=== PATIENT | female | born 1965 | race Caucasian/White ===

== ENCOUNTER 2020-05-29 06:32 | Inpatient (IN) ==
--- OUTSIDE RECORDS SUMMARY | 2020-05-29 06:34 | External Medical Summary | Continuity of Care Document ---
:1965 Author Name Kayleen Riojas Address Unavailable Unavailable , Care Team Providers Name Role Phone Ben Riojas Unavailable [email or web address], [email or web address] Unavailable Unavailable Unavailable Unavailable Unavailable Problems Abnormal finding on mammography (793.80) (R92.8) Encounter for routine gynecological examination (V72.31) (Z0 1.419) Hypertension (401.9) (I10) Allergies and Adverse Reactions Codeine Derivatives (Allergy) Contrast Media Ready-Box MISC (Allergy) Demerol SOLN (Allergy) Morphine Derivatives (Allergy) Medications Levoxyl 88 MCG Oral Tablet Refills: 0 Cardizem TABS Refills: 0 LaMICtal TABS Refills: 0 Zocor TABS Refills: 0 Remeron TABS Refills: 0 Flecainide Acetate TABS Refills: 0 CeleXA TABS Refills: 0 Procedures History of Oral Surgery Tooth Extraction Status: Completed History of Hernia Repair Status: Complet ed History of Tonsillectomy With Adenoidectomy Status: Completed History of Vaginal Hysterectomy Status: Completed History of Complete Colonoscopy Status: Completed History of Cervix Cryosurgery Status: Co mpleted History of Laparoscop Fulguration Uterine Surface Endometrio tic Status: Completed Tissue History of Lysis Of Vulvar Labial Adhesions Status: Completed Immunizations Immunizations not documented Family History Grandmother Family history of Breast Cancer (V16.3) Status: Active aunt Family history of Breast Cancer (V16.3) Status: Active Father Family history of Colon Cancer (V16.0) Status: Active Social History - Smoking Status Tobacco smoking consumption unknown Plan of Treatment Planned Observations Planned Goals not documented Results No Known Results Results not documented
[2020-05-29] MEDS ORDERED: SODIUM CHLORIDE 0.9% 1000ML 1,000 ML IV ONE (07:09)
[2020-05-29] MEDS ORDERED: ceFAZolin 2000MG 2,000 MG/15 ML SYR IV STA (07:15)
[2020-05-29] MEDS ORDERED: methylPREDNISolone 125 MG/2 ML VIAL IV STA (07:20)
[2020-05-29] MEDS ORDERED: diphenhydrAMINE 50 MG/ML VIAL IV STA (07:20)
--- NOTE | 2020-05-29 07:20 | Emergency Department Note ---
History of Present Illness General Chief complaint: Infection, Wound Stated complaint: SORE ON NECK Time Seen by Provider: 05/29/20 07:00 History of Present Illness 55-year-old female who presents to the emergency department with complaint of a left neck infection. The patient reports that she started to notice some thickening and swelling 3 days ago. It did form a little bit of a head, and she did try to pop it. The patient reports that she woke up early this morning and felt drainage. She did not notice if it was bloody or purulent. The patient reports that she has also developed fevers and chills over the past 12 hours. The patient denies any known preceding injury to the skin. She denies any i nsect bites. The patient denies prior history of skin infections. The patient did take ibuprofen 600 mg at 4:30 AM (approximately 2.5 hours prior to arrival), and rates her discomfort a 3 out of 10 on my exam. Tetanus immunization is up-to-date. Home Medications Medication Instructions Recorded Confirmed Type atorvastatin 20 mg PO QAM 03/21/20 05/29/20 History bupropion HCl 150 mg PO QAM 03/21/20 05/29/20 History diltiazem HCl 240 mg PO QAM 03/21/20 05/29/20 History hydroxyzine HCl 10 - 20 mg PO TID PRN 03/21/20 05/29/20 History lamotrigine 300 mg PO QAM 03/21/20 05/29/20 History levothyroxine 112 mcg PO QAM 03/21/20 05/29/20 History mirtazapine 15 mg PO HS 03/21/20 05/29/20 History venlafaxine 300 mg PO QAM 03/21/20 05/29/20 History ibuprofen 200 mg PO Q6H PRN 05/29/20 05/29/20 History Allergies Allergy/AdvReac Type Severity Reaction Status Date / Time codeine AdvReac Unknown Nausea/Vomi Verified 05/29/20 07:13 ting Iodinated Contrast Media AdvReac Unknown Tachycardia Verified 05/29/20 07:13 morphine AdvReac Unknown Nausea/Vomi Verified 05/29/20 07:13 ting Past Med/Surg History Medical History Depression Hyperlipidemia Hypertension Hypothyroidism (acquired) Prediabetes Surgical History History of breast biopsy History of hysterectomy History of inguinal hernia repair History of tonsillectomy and adenoidectomy Family History Father Colorectal cancer Stroke Pulmonary embolism Mother Melanoma Social History Smoking Status: Never smoker Second Hand Exposure: No; Do You Dip or Chew Tobacco: No; Hx Alcohol Use: No Hx Substance Use: No Preferred Language: Slovenian Dialysis Technician Required: No Beliefs That Will Affect Care: None Current Living Situation: Spouse and Family Other Information That Helps Us Care for You: No Feels Safe at Home: Yes Safety Concerns: Feels Safe At This Time Assistive Devices: Glasses Review of Systems 10 system review was performed and was negative except for pertinent positives and negatives as indicated in history of present illness Physical Exam Vital Signs Vital Signs - 24 hr 05/29/20 06:36 05/29/20 08:00 05/29/20 09:00 Temperature 37.8 C H Temperature Source Oral Pulse Rate 115 H Pulse Rate [Right Finger] 77 78 Respiratory Rate 18 18 18 Respiratory Effort / Characteristics Non-Labored Spontaneous Non-Labored Spontaneous Non-Labored Spontaneous Respiratory Depth Normal Normal Normal Respiratory Pattern Regular Regular Regular Blood Pressure 149/84 H Blood Pressure [Left Arm] 133/84 141/87 H Blood Pressure Mean 105 Blood Pressure Mean [Left Arm] 100 105 Blood Pressure Position Sitting Blood Pressure Position [Left Arm] Lying Lying Pulse Oximetry 95 95 95 Oxygen Delivery Method Room Air Room Air Room Air Sepsis Recent Fever Within 48 Hours Yes Sepsis New/Unexplained Change in Mental Status No Sepsis Action Taken by Nursing No Action Required 05/29/20 10:00 05/29/20 10:30 Temperature 37.3 C Temperature Source Oral Pulse Rate Pulse Rate [Right Finger] 92 H 84 Respiratory Rate 18 18 Respiratory Effort / Characteristics Non-Labored Spontaneous Non-Labored Spontaneous Respiratory Depth Normal Normal Respiratory Pattern Regular Regular Blood Pressure Blood Pressure [Left Arm] 133/84 132/83 Blood Pressure Mean Blood Pressure Mean [Left Arm] 100 99 Blood Pressure Position Blood Pressure Position [Left Arm] Lying Lying Pulse Oximetry 94 94 Oxygen Delivery Method Room Air Room Air Sepsis Recent Fever Within 48 Hours Sepsis New/Unexplained Change in Mental Status Sepsis Action Taken by Nursing CONSTITUTIONAL: Healthy and well nourished. Patient does not appear acutely ill or toxic. HEENT: Normocephalic, atraumatic. Pupils equal, round and reactive. Ears and nares are clear. No scleral icterus or conjunctival injection. Examination of the oropharynx does not show any obvious gingival erythema, fluctuance or pointing. No tenderness to palpation or percussion of any left mandibular dentition. NECK: Examination shows notable induration of the left submandibular and anterior lateral neck region. No fluctuance appreciated. No obvious tracheal deviation. No JVD or carotid bruits. LYMPHATICS: No cervical chain adenopathy. RESPIRATORY: Clear to auscultation bilaterally with no wheezing, crackles, rhonchi or stridor. CARDIOVASCULAR: Regular rate and rhythm with no murmurs, rubs or gallops. GASTROINTESTINAL: Bowel sounds present in all quadrants. Soft and nontender to palpation. MUSCULOSKELETAL: Full range of motion of all major joints without discomfort. INTEGUMENTARY: No rash or other significant dermatologic conditions noted. HEMATOLOGIC: No ecchymosis or petechiae. PSYCHIATRIC: Positive affect. NEUROLOGIC: Facial sensations are intact. Course Course Patient history and physical exam were performed. Nurses notes were reviewed. Vital signs were reviewed, showing an oral temperature of 37.8 C. Patient is also tachycardic at 115 bpm. She is also hypertensive at 149/84. Patient does not appear in any acute distress, and refuses any analgesics. IV access was established, and labs were drawn, including blood cultures x2. After cultures were drawn, the patient was administered IV Ancef. Review of labs does show a white count of 14.88 with left shift and bandemia. Lactate was elevated at 2.2. Remaining electrolytes were normal. I did recommend CT imaging of the neck to rule out abscess. The patient is noted to have an allergy to IV contrast. She has had IV contrast in the past when premedicated. The patient was administered IV Solu-Medrol and Benadryl. CT of the neck with IV contrast was performed without any adverse side effects, and showed a 9 mm fluid collection consistent with abscess. Findings were discussed with Dr. Santana, ED attending physician, who agrees with hospitalist evaluation. Findings were also discussed with the patient, expressing concern for possible quick development and worsening infection. She was in agreement with hospice evaluation as well. [facility] Please see their dictation for further treatment and final disposition. Administered Medications Potassium Chloride/Sodium Chloride (Normal Saline W/20 Meq Kcl) 20 meq in 1,000 mls @ 125 mls/hr IV .Q8H GUILLAUME Stop: 05/30/20 03:54 Last Admin: 05/29/20 13:06 Dose: 125 mls/hr Documented by: [id number] Discontinued Medications Diphenhydramine HCl (Diphenhydramine 50 Mg/Ml Vial) 25 mg IV NOW STA Stop: 05/29/20 07:21 Last Admin: 05/29/20 07:57 Dose: 25 mg Documented by: [id number] Sodium Chloride (Nss 1000ml) 1,000 mls @ 999 mls/hr IV .Q1H1M ONE Stop: 05/29/20 08:09 Last Infusion: 05/29/20 08:58 Dose: 0 mls/hr Documented by: [id number] Admin: 05/29/20 07:57 Dose: 999 mls/hr Documented by: [id number] Cefazolin Sodium (Ancef 2000mg) 2,000 mg in 15 mls @ 3.75 mls/min IV NOW STA Stop: 05/29/20 07:18 Last Admin: 05/29/20 08:02 Dose: 3.75 mls/min Documented by: [id number] Ioversol (Ioversol 100ml) 94 ml IV ONCE ONE Stop: 05/29/20 09:14 Last Admin: 05/29/20 09:14 Dose: 94 ml Documented by: [id number] Methylprednisolone (Methylprednisolone 125 Mg/2 Ml Vial) 125 mg IV NOW STA Stop: 05/29/20 07:21 Last Admin: 05/29/20 07:57 Dose: 125 mg Documented by: [id number] Medical Decision Making Medical Records Attestation: I reviewed the patient's medical records. Home Medications Current Medication List: was personally reviewed by me Laboratory Data Attestation: I reviewed the patient's lab results. Result diagrams: 05/29/20 07:35 05/29/20 07:35 Lab Results 05/29/20 05/29/20 05/29/20 Range/Units 07:35 07:35 07:35 WBC 14.88 H (4.8-10.8) K/uL RBC 4.75 (4.2-5.4) M/uL Hgb 14.5 (12.0-16.0) g/dL Hct 43.1 (37-47) % MCV 90.7 (80-100) fL MCH 30.5 (25-34) pg MCHC 33.6 (32-36) g/dL RDW Std Deviation 43.8 (36.4-46.3) fL RDW Coeff of Veronica 13.3 (11.5-14.5) % Plt Count 329 (130-400) K/uL MPV 11.8 H (7.4-10.4) fL Immature Gran % (Auto) 0.4 % Neut % (Auto) 81.6 % Lymph % (Auto) 11.1 % Crenshaw % (Auto) 5.8 % Eos % (Auto) 0.8 % Baso % (Auto) 0.3 % Neut # (Auto) 12.15 H (1.4-6.5) K/uL Lymph # (Auto) 1.65 (1.2-3.4) K/uL Crenshaw # (Auto) 0.86 H (0.11-0.59) K/uL Eos # (Auto) 0.12 (0-0.5) K/uL Baso # (Auto) 0.04 (0-0.2) K/uL Immature Gran # (Auto) 0.06 H (0.00-0.02) K/uL Sodium 140 (136-145) mmol/L Potassium 3.5 (3.5-5.1) mmol/L Chloride 107 (98-107) mmol/L Carbon Dioxide 25 (21-32) mmol/L Anion Gap 8.0 (3-11) BUN 23 H (7-18) mg/dl Creatinine 1.23 H (0.6-1.2) mg/dl Est Cr Clr Drug Dosing 60.1 ml/min Est GFR ( Amer) 56.8 Est GFR (Non-Af Amer) 49.0 BUN/Creatinine Ratio 18.6 (10-20) Glucose 182 H (70-99) mg/dl Lactate 2.2 H* (0.4-2.0) mmol/L Calcium 9.8 (8.5-10.1) mg/dl Total Bilirubin 0.3 (0.2-1) mg/dl AST 35 (15-37) U/L ALT 75 (12-78) U/L Alkaline Phosphatase 157 H (45-117) U/L Total Protein 8.1 (6.4-8.2) gm/dl Albumin 4.8 (3.4-5.0) gm/dl Globulin 3.3 (2.5-4.0) gm/dl Albumin/Globulin Ratio 1.5 (0.9-2) Procalcitonin (0-0.5) ng/ml 05/29/20 05/29/20 Range/Units 07:35 09:51 WBC (4.8-10.8) K/uL RBC (4.2-5.4) M/uL Hgb (12.0-16.0) g/dL Hct (37-47) % MCV (80-100) fL MCH (25-34) pg MCHC (32-36) g/dL RDW Std Deviation (36.4-46.3) fL RDW Coeff of Veronica (11.5-14.5) % Plt Count (130-400) K/uL MPV (7.4-10.4) fL Immature Gran % (Auto) % Neut % (Auto) % Lymph % (Auto) % Crenshaw % (Auto) % Eos % (Auto) % Baso % (Auto) % Neut # (Auto) (1.4-6.5) K/uL Lymph # (Auto) (1.2-3.4) K/uL Crenshaw # (Auto) (0.11-0.59) K/uL Eos # (Auto) (0-0.5) K/uL Baso # (Auto) (0-0.2) K/uL Immature Gran # (Auto) (0.00-0.02) K/uL Sodium (136-145) mmol/L Potassium (3.5-5.1) mmol/L Chloride (98-107) mmol/L Carbon Dioxide (21-32) mmol/L Anion Gap (3-11) BUN (7-18) mg/dl Creatinine (0.6-1.2) mg/dl Est Cr Clr Drug Dosing ml/min Est GFR ( Amer) Est GFR (Non-Af Amer) BUN/Creatinine Ratio (10-20) Glucose (70-99) mg/dl Lactate 1.3 (0.4-2.0) mmol/L Calcium (8.5-10.1) mg/dl Total Bilirubin (0.2-1) mg/dl AST (15-37) U/L ALT (12-78) U/L Alkaline Phosphatase (45-117) U/L Total Protein (6.4-8.2) gm/dl Albumin (3.4-5.0) gm/dl Globulin (2.5-4.0) gm/dl Albumin/Globulin Ratio (0.9-2) Procalcitonin 0.08 (0-0.5) ng/ml Imaging Data Attestation: I personally reviewed and interpreted this imaging study as follows: My Impression: CT of the neck with IV contrast shows a small fluid collection consistent with abscess. No other acute paratracheal or other concerning findings. Radiologist report was also reviewed. Radiologist's Impression: CT OF THE NECK WITH IV CONTRAST CLINICAL HISTORY: Left neck abscess versus cellulitis. COMPARISON STUDY: No previous studies for comparison. TECHNIQUE: Following IV administration of 94 mL of Optiray-320, helical axial images of the neck were obtained. Sagittal and coronal reconstructions were viewed. Automated exposure control was utilized for the study. A dose lowering technique was utilized adhering to the principles of ALARA. CT DOSE: 442.83 mGycm FINDINGS: Visualized portions of the intracranial contents are unremarkable. Orbits are unremarkable. The sinuses are clear. A few opacified right mastoid air cells are noted. Major vasculature of the neck is patent. Parotid and submandibular glands are normal. No periapical abscess is identified. A marker was placed on the skin at site of abnormality. There is a corresponding 9 mm subcutaneous rim-enhancing fluid collection on image 129 of 238 consistent with a small abscess. There is moderate associated inflammation with thickening of the platysma. There is no soft tissue gas. Airway is patent. Lung apices are clear. There is no cervical spine fracture. No cervical lymphadenopathy is present. Epiglottis is normal. No mucosal lesion is identified although these may be occult by CT. IMPRESSION: 9 mm subcutaneous rim-enhancing left neck fluid collection consistent with an abscess at site of maximal swelling. Moderate associated infl ammation with skin thickening consistent with cellulitis. No soft tissue gas. Blood Pressure Blood Pressure Findings: Elevated blood pressure MDM Narrative Patient has notable swelling of the left neck region with a fever and elevated lactate that I feel warrants hospitalist evaluation for IV antibiotics and close monitoring for worsening condition. At this point, I feel that the abscess is too small for I&D procedure. CT does not show any involvement of the deeper neck tissue or paratracheal region. Impression & Plan Abscess, neck, Fever Discharge Plan Visit Data Chief Complaint: Infection, Wound Stated Complaint: SORE ON NECK ED Provider: David Santana ED Midlevel Provider: Yinka Crowley Discharge Problem: Abscess, neck, Fever Patient Disposition: Admitted As Inpatient Discharge Instructions Interventions: ED Discharge Assessment Last Done: 05/29/20 14:13
[2020-05-29 08:21] LABS: Basophils # (auto) 0.04 K/uL (0-0.2); Basophils % (auto) 0.3 %; Eosinophils # (auto) 0.12 K/uL (0-0.5); Eosinophils % (auto) 0.8 %; Hematocrit (blood only) 43.1 % (37-47); Hemoglobin 14.5 g/dL (12.0-16.0); Immature Granulocytes # (auto) 0.06 K/uL (0.00-0.02); Immature Granulocytes % (auto) 0.4 %; Lymphocytes # (auto) 1.65 K/uL (1.2-3.4); Lymphocytes % (auto) 11.1 %; Mean Corpuscular Hemoglobin 30.5 pg (25-34); Mean Corpuscular Hgb Conc 33.6 g/dL (32-36); Mean Corpuscular Volume 90.7 fL (80-100); Mean Platelet Volume 11.8 fL (7.4-10.4); Monocytes # (auto) 0.86 K/uL (0.11-0.59); Monocytes % (auto) 5.8 %; Neutrophils # (auto) 12.15 K/uL (1.4-6.5); Neutrophils % (auto) 81.6 %; Platelet Count 329 K/uL (130-400); RDW Coefficient of Variation 13.3 % (11.5-14.5); RDW Standard Deviation 43.8 fL (36.4-46.3); Red Blood Count 4.75 M/uL (4.2-5.4); White Blood Count 14.88 K/uL (4.8-10.8)
[2020-05-29 08:41] LABS: Albumin Level 4.8 gm/dl (3.4-5.0); BUN Creatinine Ratio 18.6 (10-20); Calcium 9.8 mg/dl (8.5-10.1); Creatinine Clr Calc Pharmacy 60.1 ml/min; Est GFR (African American) 56.8; Potassium 3.5 mmol/L (3.5-5.1)
[2020-05-29 08:44] LABS: Albumin Globulin Ratio 1.5 (0.9-2); Bilirubin,Total 0.3 mg/dl (0.2-1); Globulin 3.3 gm/dl (2.5-4.0); Total Protein 8.1 gm/dl (6.4-8.2)
[2020-05-29] MEDS ORDERED: IOVERSOL 100ml IV ONE (09:13)
--- NOTE | 2020-05-29 09:23 | CT Scan Report ---
CT OF THE NECK WITH IV CONTRAST CLINICAL HISTORY: Left neck abscess versus cellulitis. COMPARISON STUDY: No previous studies for comparison. TECHNIQUE: Following IV administration of 94 mL of Optiray-320, helical axial images of the neck wer e obtained. Sagittal and coronal reconstructions were viewed. Automated exposure control was utiliz ed for the study. A dose lowering technique was utilized adhering to the principles of ALARA. CT DOSE: 442.83 mGycm FINDINGS: Visualized portions of the intracranial contents are unremarkable. Orbits are unremarkable . The sinuses are clear. A few opacified right mastoid air cells are noted. Major vasculature of the neck is patent. Parotid and submandibular glands are normal. No periapical abscess is identified. A m arker was placed on the skin at site of abnormality. There is a corresponding 9 mm subcutaneous rim-e nhancing fluid collection on image 129 of 238 consistent with a small abscess. There is moderate asso ciated inflammation with thickening of the platysma. There is no soft tissue gas. Airway is patent. L kingsley apices are clear. There is no cervical spine fracture. No cervical lymphadenopathy is present. Ep iglottis is normal. No mucosal lesion is identified although these may be occult by CT. IMPRESSION: 9 mm subcutaneous rim-enhancing left neck fluid collection consistent with an abscess at site of maximal swelling. Moderate associated inflammation with skin thickening consistent with cell ulitis. No soft tissue gas. ACT 112: Negative or not required by law. Electronically signed by: Samuel Schumacher M.D. 05/29/2020 9:21 AM
--- NOTE | 2020-05-29 11:26 | History & Physical Report ---
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 (6) Depression: - Continue outpatient meds DVT prophylaxis with Lovenox Pt requests to be full code Pt seen and reviewed with collaborating physician, Dr. An. Plan of care discussed and as outlined above. Fanny Grant PA-C History of Present Illness Chief Complaint: Neck swelling and tenderness Primary Care Provider: Davis Hernandez DO This is a 55 y/o female with a PMH of hypothyroidism, dyslipidemia, prediabetes, and depression who presented to the ED this morning with worsening symptoms of a neck infection. Pt reports that she noticed swelling, redness, and tenderness in her left neck three days ago. She was using warm compresses which seemed to help somewhat. Not really painful but area was tender to touch. Yesterday afternoon, symptoms acutely worsening with increased swelling and tenderness with the onset of spontaneous purulent drainage. She kept wiping the area and cleaning with soap and water but didn't feel like she needed to keep it covered. Drainage seemed to stop overnight. None at present. She didn't sleep well last night due to her symptoms although she denies that significant pain kept her awake. She has felt hot at times but denies chills. No documented fever at home but was noted to have a fever in the ED. Fatigue related to not sleeping last night but otherwise no malaise. She denies dysphagia, odynophagia, sensation of throat closing, chest tightness, wheezing, shortness of breath or chest pain. She denies dental pain, swelling or bleeding. No similar symptoms prior. 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 No known contact with [facility] but her spouse works at [employer], which is currently having an outbreak. Spouse is asymptomatic. Allergies Allergy/AdvReac Type Severity Reaction Status Date / Time codeine AdvReac Unknown Nausea/Vomi Verified 05/29/20 07:13 ting Iodinated Contrast Media AdvReac Unknown Tachycardia Verified 05/29/20 07:13 morphine AdvReac Unknown Nausea/Vomi Verified 05/29/20 07:13 ting Home Medications Medication Instructions Recorded Confirmed Type atorvastatin 20 mg PO QAM 03/21/20 05/29/20 History bupropion HCl 150 mg PO QAM 03/21/20 05/29/20 History diltiazem HCl 240 mg PO QAM 03/21/20 05/29/20 History hydroxyzine HCl 10 - 20 mg PO TID PRN 03/21/20 05/29/20 History lamotrigine 300 mg PO QAM 03/21/20 05/29/20 History levothyroxine 112 mcg PO QAM 03/21/20 05/29/20 History mirtazapine 15 mg PO HS 03/21/20 05/29/20 History venlafaxine 300 mg PO QAM 03/21/20 05/29/20 History ibuprofen 200 mg PO Q6H PRN 05/29/20 05/29/20 History Past Med/Surg History Medical History Depression Hyperlipidemia Hypertension Hypothyroidism (acquired) Prediabetes Surgical History History of breast biopsy History of hysterectomy History of inguinal hernia repair History of tonsillectomy and adenoidectomy Family History (Updated 05/29/20 @ 11:24 by Kamla Grant PA-C) Father Colorectal cancer Stroke Pulmonary embolism Mother Melanoma Social History Smoking Status: Never smoker Preferred Language: Ukrainian Feels Safe at Home: Yes Review of Systems Review of Systems: All systems reviewed & are unremarkable except as noted in HPI & below Constitutional: + fever, + sweats and + fatigue; no chills, no weakness and no anorexia Eyes: no diplopia and no worsening vision Ear, Nose, Mouth, Throat: no dental pain, no dental abscess, no bleeding gums, no sore throat and no dysphagia Respiratory: no cough, no chest congestion, no dyspnea and no wheezing Cardiovascular: no chest pain, no palpitations, no lightheadedness, no syncope and no edema Gastrointestinal: no abdominal pain, no nausea, no vomiting and no diarrhea/loose stools Genitourinary: no dysuria, no urinary frequency and no hematuria Musculoskeletal: + neck pain; no myalgia and no muscle weakness Integumentary: as per Subjective / HPI Neurologic: no seizure-like activity, no dizziness and no headache(s) Psychiatric: + depression and + anxiety Physical Exam Constitutional: WD/WN, vitals as above no acute distress Eyes: + anicteric sclerae ENMT: multiple fillings noted, no significant gingival swelling, purulent drainage, bleeding or tenderness noted. Neck: moderately swollen submandibular LN Tender indurated area left neck with overlying area of erythema, small amount of crusted drainage but not actively draining at present. Tenderness extends from just right of midline under jaw to left jawline to lateral left neck but does not extend to left ear or left supraclavicular area Respiratory: no respiratory distress and no labored breathing Auscultation: lungs clear to auscultation bilaterally; no rales, no rhonchi and no wheezes Cardiovascular: Rate/Rhythm: regular rate and regular rhythm Heart Sounds: no gallop, no murmur and no cardiac rub Vessels: dorsalis pedis pulses present Extremities: no pedal edema Gastrointestinal (Abdomen): Inspection/Auscultation: normal bowel sounds; abdomen not distended Percussion/Palpation: abdomen soft; abdomen nontender Musculoskeletal: Head/Neck/Chest: normocephalic, head atraumatic and neck supple Extremities: no cyanosis and no clubbing Skin: + induration and + erythema See neck exam Neurologic: moves all extremities; no focal motor deficits Psychiatric: A+Ox3, euthymic affect Results & Data Results & Data ([facility]) Vital Signs (Past 12 Hours) Vital Signs Temp Pulse Pulse Resp BP BP Pulse Ox 05/29/20 10:30 84 18 132/83 94 05/29/20 10:00 37.3 C 92 H 18 133/84 94 05/29/20 09:00 78 18 141/87 H 95 05/29/20 08:00 77 18 133/84 95 05/29/20 06:36 37.8 C H 115 H 18 149/84 H 95 Laboratory Results Laboratory Results - last 24 hr 05/29/20 05/29/20 05/29/20 07:35 07:35 07:35 WBC 14.88 H RBC 4.75 Hgb 14.5 Hct 43.1 MCV 90.7 MCH 30.5 MCHC 33.6 RDW Std Deviation 43.8 RDW Coeff of Veronica 13.3 Plt Count 329 MPV 11.8 H Immature Gran % (Auto) 0.4 Neut % (Auto) 81.6 Lymph % (Auto) 11.1 [place] % (Auto) 5.8 Eos % (Auto) 0.8 Baso % (Auto) 0.3 Neut # (Auto) 12.15 H Lymph # (Auto) 1.65 [place] # (Auto) 0.86 H Eos # (Auto) 0.12 Baso # (Auto) 0.04 Immature Gran # (Auto) 0.06 H Sodium 140 Potassium 3.5 Chloride 107 Carbon Dioxide 25 Anion Gap 8.0 BUN 23 H Creatinine 1.23 H Est Cr Clr Drug Dosing 60.1 Est GFR ( Amer) 56.8 Est GFR (Non-Af Amer) 49.0 BUN/Creatinine Ratio 18.6 Glucose 182 H Lactate 2.2 H* Calcium 9.8 Total Bilirubin 0.3 AST 35 ALT 75 Alkaline Phosphatase 157 H Total Protein 8.1 Albumin 4.8 Globulin 3.3 Albumin/Globulin Ratio 1.5 Procalcitonin SARS-CoV-2 Ag (Rapid) 05/29/20 05/29/20 05/29/20 07:35 09:51 Unknown WBC RBC Hgb Hct MCV MCH MCHC RDW Std Deviation RDW Coeff of Veronica Plt Count MPV Immature Gran % (Auto) Neut % (Auto) Lymph % (Auto) [place] % (Auto) Eos % (Auto) Baso % (Auto) Neut # (Auto) Lymph # (Auto) [place] # (Auto) Eos # (Auto) Baso # (Auto) Immature Gran # (Auto) Sodium Potassium Chloride Carbon Dioxide Anion Gap BUN Creatinine Est Cr Clr Drug Dosing Est GFR ( Amer) Est GFR (Non-Af Amer) BUN/Creatinine Ratio Glucose Lactate 1.3 Calcium Total Bilirubin AST ALT Alkaline Phosphatase Total Protein Albumin Globulin Albumin/Globulin Ratio Procalcitonin 0.08 SARS-CoV-2 Ag (Rapid) Negative Medications Administered Discontinued Medications Diphenhydramine HCl (Diphenhydramine 50 Mg/Ml Vial) 25 mg IV NOW STA Stop: 05/29/20 07:21 Last Admin: 05/29/20 07:57 Dose: 25 mg Documented by: [id number] Sodium Chloride (Nss 1000ml) 1,000 mls @ 999 mls/hr IV .Q1H1M ONE Stop: 05/29/20 08:09 Last Infusion: 05/29/20 08:58 Dose: 0 mls/hr Documented by: [id number] Admin: 05/29/20 07:57 Dose: 999 mls/hr Documented by: [id number] Cefazolin Sodium (Ancef 2000mg) 2,000 mg in 15 mls @ 3.75 mls/min IV NOW STA Stop: 05/29/20 07:18 Last Admin: 05/29/20 08:02 Dose: 3.75 mls/min Documented by: [id number] Ioversol (Ioversol 100ml) 94 ml IV ONCE ONE Stop: 05/29/20 09:14 Last Admin: 05/29/20 09:14 Dose: 94 ml Documented by: [id number] Methylprednisolone (Methylprednisolone 125 Mg/2 Ml Vial) 125 mg IV NOW STA Stop: 05/29/20 07:21 Last Admin: 05/29/20 07:57 Dose: 125 mg Documented by: [id number] Code Status & VTE Plan VTE Prophylaxis Plan VTE Prophylaxis will be ordered: Yes Supervising Physician Co-Signing Physician Notes Patient is a 55-year-old female with history of prediabetes, hypothyroidism and other medical problems presents with history of worsening neck swelling, erythema, tenderness predominantly on left side of the neck with started as a small lump since 3 days duration. She also admits to noticing purulent drainage from the swelling. Denies any history of dysphagia, odynophagia, dyspnea, insect bite, trauma to the area. Please review HPI for complete details of presentation. On exam patient is moderately built and nourished, no apparent distress, normocephalic atraumatic, EOMI, Neck--+ neck swelling predominantly left side/Sub mandibular region, small crusted blister like erythematous lesion, + submental, submandibular lymphadenopathy, tenderness, lungs are clear to auscultation, normal breath sounds, S1-S2, no murmur, + tachycardia, trace pedal edema, abdomen soft, nontender, normal bowel sounds, alert awake oriented, grossly no focal motor deficits. Patient is admitted for management of Possible sepsis secondary to neck abscess/Facial Cellulitis. Lactate levels normalized with IV fluids. Neck CT suggestive of 9 mm subcutaneous rim-enhancing left neck fluid collection con sistent with an abscess at site of maximal swelling. Also noted moderate inflammation with skin thickening consistent with cellulitis. Blood cultures were obtained. Check MRSA screen. Agree with local wound care and surgery consult for possible I&D. Will start on broad-spectrum antibiotics Unasyn, doxycycline. Continue IV fluids. Will update HbA1c given history of prediabetes. Sinus tachycardia. Will restart diltiazem. I personally reviewed the record. Patient is interviewed and examined at bedside. Patient's care is coordinated with Kamla Grant PA-C. Please refer to the documentation above for details of patient's presentation and for discussion of other issues. (1) Depression Active/Remission status: remission status unspecified Depression Type: major depressive disorder Major depression recurrence: recurrent Qualified Code(s): F33.9 - Major depressive disorder, recurrent, unspecified
[2020-05-29] MEDS: NSS + 20MEQ KCL 20 MEQ/1,000 ML BAG IV SCH ×2 (13:06→22:42)
[2020-05-29] MEDS ORDERED: ACETAMINOPHEN 325 MG TAB PO PRN (14:27)
[2020-05-29] MEDS ORDERED: CARBOHYDRATES FOR HYPOGLYCEMIA PO PRN (14:27)
[2020-05-29] MEDS ORDERED: AMPICILLIN/SULBACTAM SOD 1,500 MG in 0.9 % SODIUM CHLORIDE 100 ML IV SCH (14:27)
[2020-05-29] MEDS ORDERED: GLUCOSE 40% GEL 15 GM TUBE PO PRN (14:27)
[2020-05-29] MEDS ORDERED: GLUCOSE 10 TABS/TUBE PO PRN (14:27)
[2020-05-29] MEDS ORDERED: GLUCAGON FOR INJ 1 MG VIAL SQ PRN (14:27)
[2020-05-29] MEDS ORDERED: DEXTROSE 50% 50 ML SYRINGE IV PRN (14:27)
[2020-05-29] MEDS ORDERED: CONSULT PHARMACY PRN (14:52)
[2020-05-29] MEDS: ENOXAPARIN INJ 40 MG/0.4 ML SYR SQ SCH (15:45)
[2020-05-29] MEDS: dilTIAZem HCL 240 MG CAPCR PO SCH (15:45)
[2020-05-29] MEDS: VENLAFAXINE HCL XR 150 MG CAPXR PO SCH (15:45)
[2020-05-29] MEDS: buPROPion SR 150 MG TABCR PO SCH (15:46)
[2020-05-29] MEDS: lamoTRIgine 100 MG TAB PO SCH (15:46)
[2020-05-29] MEDS: AMPICILLIN/SULBACTAM SOD 3,000 MG in 0.9 % SODIUM CHLORIDE 100 ML IV SCH ×2 (15:50→21:33)
--- NOTE | 2020-05-29 16:52 | Surgery Consultation ---
Date of Consultation May 29, 2020 Assessment & Plan (1) Abscess, neck: This patient had what sounds like an abscess. The CAT scan confirms that although it is only 9 mm in size. Agree with IV antibiotics. Would continue with warm compresses. Would recommend ENT evaluation. Would hold enoxaparin. If this does not improve with IV antibiotics and conservative management may need surgical intervention but again would like to defer to ENT for their opinion. History of Present Illness Reason for Consultation: Abscess left neck Requesting Physician: Kamla Grant PA-C Attending Physician: Tj An MD History of Present Illness I been asked by Kamla Grant PA-C to see this 55-year-old female who presented to the emergency room with pain swelling and erythema on the left side of her neck. She states it began 3 days ago as a small area that was tender and she thought it was a "boil" however yesterday the swelling increased and extended up along the neck over the mandible to the cheek. She had then spontaneous drainage from the central portion of this area with what she described as white purulent appearing material. There was no blood. It continued to drain through the night but then the drainage has now ceased. She thinks she may have had fever but did not take her temperature. She had fever here in the emergency room. She has not had any difficulty swallowing. She has no history of salivary gland abnormalities. She has never had a cyst in this area in the past. She was unaware of a lump in this part of her neck prior to the onset of the symptoms 3 days ago. Allergies Allergy/AdvReac Type Severity Reaction Status Date / Time codeine AdvReac Unknown Nausea/Vomi Verified 05/29/20 07:13 ting Iodinated Contrast Media AdvReac Unknown Tachycardia Verified 05/29/20 07:13 morphine AdvReac Unknown Nausea/Vomi Verified 05/29/20 07:13 ting Home Medications Medication Instructions Recorded Confirmed Type atorvastatin 20 mg PO QAM 03/21/20 05/29/20 History bupropion HCl 150 mg PO QAM 03/21/20 05/29/20 History diltiazem HCl 240 mg PO QAM 03/21/20 05/29/20 History hydroxyzine HCl 10 - 20 mg PO TID PRN 03/21/20 05/29/20 History lamotrigine 300 mg PO QAM 03/21/20 05/29/20 History levothyroxine 112 mcg PO QAM 03/21/20 05/29/20 History mirtazapine 15 mg PO HS 03/21/20 05/29/20 History venlafaxine 300 mg PO QAM 03/21/20 05/29/20 History ibuprofen 200 mg PO Q6H PRN 05/29/20 05/29/20 History Patient History Medical History Depression Hyperlipidemia Hypertension Hypothyroidism (acquired) Prediabetes Surgical History History of breast biopsy History of hysterectomy History of inguinal hernia repair History of tonsillectomy and adenoidectomy Family History Father Colorectal cancer Stroke Pulmonary embolism Mother Melanoma Social History Smoking Status: Never smoker Second Hand Exposure: No; Do You Dip or Chew Tobacco: No; Hx Alcohol Use: No Hx Substance Use: No Preferred Language: [place] Tax Intern Required: No Beliefs That Will Affect Care: None Current Living Situation: Spouse and Family Other Information That Helps Us Care for You: No Feels Safe at Home: Yes Safety Concerns: Feels Safe At This Time Assistive Devices: Glasses Review of Systems Review of Systems: All systems reviewed & are unremarkable except as noted in HPI & below Physical Exam Constitutional: no acute distress Neck: There is induration and swelling in an area measuring approximately a centimeter and a half that is discolored skin. Examination from within her mouth confirms the induration. I cannot express any discharge. There is swelling that is extending up over the mandible along her cheek. There is no erythema or induration in that area however. Respiratory: normal respiratory effort, lungs clear to auscultation Cardiovascular: Rate/Rhythm: regular rate and regular rhythm Results & Data ([facility]) Vital Signs (Past 12 Hours) Vital Signs Temp Pulse Pulse Resp BP BP Pulse Ox 05/29/20 15:19 37.0 C 114 H 17 143/83 H 94 05/29/20 14:30 36.9 C 98 H 20 141/90 H 94 05/29/20 14:13 106 H 18 92 05/29/20 13:31 95 H 16 146/92 H 92 05/29/20 13:06 98 H 16 127/87 92 05/29/20 11:36 95 H 18 148/88 H 94 05/29/20 10:30 84 18 132/83 94 05/29/20 10:00 37.3 C 92 H 18 133/84 94 05/29/20 09:00 78 18 141/87 H 95 05/29/20 08:00 77 18 133/84 95 05/29/20 06:36 37.8 C H 115 H 18 149/84 H 95 Laboratory Results 05/29/20 05/29/20 05/29/20 Range/Units Unknown Unknown 14:52 WBC (4.8-10.8) K/uL RBC (4.2-5.4) M/uL Hgb (12.0-16.0) g/dL Hct (37-47) % MCV (80-100) fL MCH (25-34) pg MCHC (32-36) g/dL RDW Std Deviation (36.4-46.3) fL RDW Coeff of Veronica (11.5-14.5) % Plt Count (130-400) K/uL MPV (7.4-10.4) fL Immature Gran % (Auto) % Neut % (Auto) % Lymph % (Auto) % [place] % (Auto) % Eos % (Auto) % Baso % (Auto) % Neut # (Auto) (1.4-6.5) K/uL Lymph # (Auto) (1.2-3.4) K/uL [place] # (Auto) (0.11-0.59) K/uL Eos # (Auto) (0-0.5) K/uL Baso # (Auto) (0-0.2) K/uL Immature Gran # (Auto) (0.00-0.02) K/uL Sodium (136-145) mmol/L Potassium (3.5-5.1) mmol/L Chloride (98-107) mmol/L Carbon Dioxide (21-32) mmol/L Anion Gap (3-11) BUN (7-18) mg/dl Creatinine (0.6-1.2) mg/dl Est Cr Clr Drug Dosing ml/min Est GFR ( Amer) Est GFR (Non-Af Amer) BUN/Creatinine Ratio (10-20) Glucose (70-99) mg/dl POC Glucose 231 H (70-99) mg/dl Lactate (0.4-2.0) mmol/L Calcium (8.5-10.1) mg/dl Total Bilirubin (0.2-1) mg/dl AST (15-37) U/L ALT (12-78) U/L Alkaline Phosphatase (45-117) U/L Total Protein (6.4-8.2) gm/dl Albumin (3.4-5.0) gm/dl Globulin (2.5-4.0) gm/dl Albumin/Globulin Ratio (0.9-2) Procalcitonin (0-0.5) ng/ml Nasal Screen MRSA (PCR) Negative (Negative) SARS-CoV-2 Ag (Rapid) Negative (Negative) 05/29/20 05/29/20 05/29/20 Range/Units 09:51 07:35 07:35 WBC (4.8-10.8) K/uL RBC (4.2-5.4) M/uL Hgb (12.0-16.0) g/dL Hct (37-47) % MCV (80-100) fL MCH (25-34) pg MCHC (32-36) g/dL RDW Std Deviation (36.4-46.3) fL RDW Coeff of Veronica (11.5-14.5) % Plt Count (130-400) K/uL MPV (7.4-10.4) fL Immature Gran % (Auto) % Neut % (Auto) % Lymph % (Auto) % [place] % (Auto) % Eos % (Auto) % Baso % (Auto) % Neut # (Auto) (1.4-6.5) K/uL Lymph # (Auto) (1.2-3.4) K/uL [place] # (Auto) (0.11-0.59) K/uL Eos # (Auto) (0-0.5) K/uL Baso # (Auto) (0-0.2) K/uL Immature Gran # (Auto) (0.00-0.02) K/uL Sodium (136-145) mmol/L Potassium (3.5-5.1) mmol/L Chloride (98-107) mmol/L Carbon Dioxide (21-32) mmol/L Anion Gap (3-11) BUN (7-18) mg/dl Creatinine (0.6-1.2) mg/dl Est Cr Clr Drug Dosing ml/min Est GFR ( Amer) Est GFR (Non-Af Amer) BUN/Creatinine Ratio (10-20) Glucose (70-99) mg/dl POC Glucose (70-99) mg/dl Lactate 1.3 2.2 H* (0.4-2.0) mmol/L Calcium (8.5-10.1) mg/dl Total Bilirubin (0.2-1) mg/dl AST (15-37) U/L ALT (12-78) U/L Alkaline Phosphatase (45-117) U/L Total Protein (6.4-8.2) gm/dl Albumin (3.4-5.0) gm/dl Globulin (2.5-4.0) gm/dl Albumin/Globulin Ratio (0.9-2) Procalcitonin 0.08 (0-0.5) ng/ml Nasal Screen MRSA (PCR) (Negative) SARS-CoV-2 Ag (Rapid) (Negative) 05/29/20 05/29/20 Range/Units 07:35 07:35 WBC 14.88 H (4.8-10.8) K/uL RBC 4.75 (4.2-5.4) M/uL Hgb 14.5 (12.0-16.0) g/dL Hct 43.1 (37-47) % MCV 90.7 (80-100) fL MCH 30.5 (25-34) pg MCHC 33.6 (32-36) g/dL RDW Std Deviation 43.8 (36.4-46.3) fL RDW Coeff of Veronica 13.3 (11.5-14.5) % Plt Count 329 (130-400) K/uL MPV 11.8 H (7.4-10.4) fL Immature Gran % (Auto) 0.4 % Neut % (Auto) 81.6 % Lymph % (Auto) 11.1 % [place] % (Auto) 5.8 % Eos % (Auto) 0.8 % Baso % (Auto) 0.3 % Neut # (Auto) 12.15 H (1.4-6.5) K/uL Lymph # (Auto) 1.65 (1.2-3.4) K/uL [place] # (Auto) 0.86 H (0.11-0.59) K/uL Eos # (Auto) 0.12 (0-0.5) K/uL Baso # (Auto) 0.04 (0-0.2) K/uL Immature Gran # (Auto) 0.06 H (0.00-0.02) K/uL Sodium 140 (136-145) mmol/L Potassium 3.5 (3.5-5.1) mmol/L Chloride 107 (98-107) mmol/L Carbon Dioxide 25 (21-32) mmol/L Anion Gap 8.0 (3-11) BUN 23 H (7-18) mg/dl Creatinine 1.23 H (0.6-1.2) mg/dl Est Cr Clr Drug Dosing 60.1 ml/min Est GFR ( Amer) 56.8 Est GFR (Non-Af Amer) 49.0 BUN/Creatinine Ratio 18.6 (10-20) Glucose 182 H (70-99) mg/dl POC Glucose (70-99) mg/dl Lactate (0.4-2.0) mmol/L Calcium 9.8 (8.5-10.1) mg/dl Total Bilirubin 0.3 (0.2-1) mg/dl AST 35 (15-37) U/L ALT 75 (12-78) U/L Alkaline Phosphatase 157 H (45-117) U/L Total Protein 8.1 (6.4-8.2) gm/dl Albumin 4.8 (3.4-5.0) gm/dl Globulin 3.3 (2.5-4.0) gm/dl Albumin/Globulin Ratio 1.5 (0.9-2) Procalcitonin (0-0.5) ng/ml Nasal Screen MRSA (PCR) (Negative) SARS-CoV-2 Ag (Rapid) (Negative) Diagnostic Findings CT OF THE NECK WITH IV CONTRAST CLINICAL HISTORY: Left neck abscess versus cellulitis. COMPARISON STUDY: No previous studies for comparison. TECHNIQUE: Following IV administration of 94 mL of Optiray-320, helical axial images of the neck were obtained. Sagittal and coronal reconstructions were viewed. Automated exposure control was utilized for the study. A dose lowering technique was utilized adhering to the principles of ALARA. CT DOSE: 442.83 mGycm FINDINGS: Visualized portions of the intracranial contents are unremarkable. Orbits are unremarkable. The sinuses are clear. A few opacified right mastoid air cells are noted. Major vasculature of the neck is patent. Parotid and submandibular glands are normal. No periapical abscess is identified. A marker was placed on the skin at site of abnormality. There is a corresponding 9 mm subcutaneous rim-enhancing fluid collection on image 129 of [id number] consistent with a small abscess. There is moderate associated inflammation with thickening of the platysma. There is no soft tissue gas. Airway is patent. Lung apices are clear. There is no cervical spine fracture. No cervical lymphadenopathy is present. Epiglottis is normal. No mucosal lesion is identified although these may be occult by CT. IMPRESSION: 9 mm subcutaneous rim-enhancing left neck fluid collection consistent with an abscess at site of maximal swelling. Moderate associated inflammation with skin thickening consistent with cellulitis. No soft tissue gas.
[2020-05-29] MEDS: DOXYCYCLINE HYCLATE 100 MG CAP PO SCH ×2 (17:01→22:43)
[2020-05-29] MEDS: INSULIN ASPART 100 UNITS/ML 3 ML PEN SC SCH ×2 (18:40→22:29)
[2020-05-29] MEDS: MIRTAZAPINE TAB 15 MG TAB PO SCH (21:39)
[2020-05-30] MEDS: AMPICILLIN/SULBACTAM SOD 3,000 MG in 0.9 % SODIUM CHLORIDE 100 ML IV SCH ×4 (02:26→21:18)
[2020-05-30] MEDS: LEVOTHYROXINE SODIUM 112 MCG TABLET PO SCH (05:44)
[2020-05-30 06:58] LABS: Basophils # (auto) 0.01 K/uL (0-0.2); Basophils % (auto) 0.1 %; Hematocrit (blood only) 36.4 % (37-47); Hemoglobin 12.2 g/dL (12.0-16.0); Immature Granulocytes # (auto) 0.08 K/uL (0.00-0.02); Immature Granulocytes % (auto) 0.5 %; Lymphocytes # (auto) 1.98 K/uL (1.2-3.4); Lymphocytes % (auto) 12.4 %; Mean Corpuscular Hemoglobin 30.3 pg (25-34); Mean Corpuscular Hgb Conc 33.5 g/dL (32-36); Mean Corpuscular Volume 90.5 fL (80-100); Mean Platelet Volume 11.6 fL (7.4-10.4); Monocytes % (auto) 8.1 %; Neutrophils # (auto) 12.61 K/uL (1.4-6.5); Neutrophils % (auto) 78.9 %; Platelet Count 287 K/uL (130-400); RDW Coefficient of Variation 13.4 % (11.5-14.5); RDW Standard Deviation 43.8 fL (36.4-46.3); Red Blood Count 4.02 M/uL (4.2-5.4); White Blood Count 15.98 K/uL (4.8-10.8)
[2020-05-30 07:04] LABS: Estimated Average Glucose 126 mg/dl
[2020-05-30 07:39] LABS: BUN Creatinine Ratio 15.4 (10-20); Calcium 8.8 mg/dl (8.5-10.1); Creatinine Clr Calc Pharmacy 76.1 ml/min; Est GFR (African American) 75.7; Est GFR (Non-African American) 65.3; Magnesium 1.9 mg/dl (1.8-2.4)
[2020-05-30 07:52] LABS: Thyroid Stimulating Hormone 0.178 uIu/ml (0.300-4.500)
[2020-05-30 08:11] LABS: T4 Free Thyroxine 1.1 ng/dl (0.8-1.6)
[2020-05-30] MEDS: dilTIAZem HCL 240 MG CAPCR PO SCH (08:50)
[2020-05-30] MEDS: ATORVASTATIN 20 MG TAB PO SCH (08:50)
[2020-05-30] MEDS: DOXYCYCLINE HYCLATE 100 MG CAP PO SCH ×2 (08:50→21:23)
[2020-05-30] MEDS: buPROPion SR 150 MG TABCR PO SCH (08:50)
[2020-05-30] MEDS: VENLAFAXINE HCL XR 150 MG CAPXR PO SCH (08:50)
[2020-05-30] MEDS: lamoTRIgine 100 MG TAB PO SCH (08:51)
[2020-05-30] MEDS: INSULIN ASPART 100 UNITS/ML 3 ML PEN SC SCH ×4 (08:54→21:16)
--- NOTE | 2020-05-30 09:58 | Electrocardiogram Report ---
Test Reason : Blood Pressure : / mmHG Vent. Rate : 117 BPM Atrial Rate : 117 BPM P-R Int : 172 ms QRS Dur : 088 ms QT Int : 304 ms P-R-T Axes : 060 -11 068 degrees QTc Int : 424 ms Sinus tachycardia Possible Left atrial enlargement Nonspecific T wave abnormality Abnormal ECG When compared with ECG of 21-MAR-2020 19:36, Aberrant conduction is no longer Present T wave inversion now evident in Anterior leads Confirmed by Dani Mi ([id number]) on 05/30/2020 9:57:50 AM Referred By: REFERRED SELF Confirmed By:Dani Mi
--- NOTE | 2020-05-30 10:16 | Surgery Progress Note ---
Date of Service May 30, 2020 Assessment & Plan (1) Abscess, neck: Subjectively she is unchanged. Her white count has increased today There is some cellulitis extending under her chin The swelling of the cheek has improved Would encourage ENT consult. Admission and Anticipated Discharge Date Admission Date: May 29, 2020 Subjective Has less pain today think swelling up along the cheek has decreased but has some discomfort under her chin now. Heart rate has been recorded over 100 for the last 8 hours Denies nausea or vomiting Physical Exam Neck: Area of induration is unchanged although there is some erythema possible cellulitis not extending below her chin. The swelling of the cheek is decreased Results & Data ([facility]) Vital Signs (Past 12 Hours) Vital Signs Temp Pulse Resp BP Pulse Ox 05/30/20 08:49 92 05/30/20 07:29 36.9 C 95 H 129/75 84 L 05/29/20 23:13 37.3 C 109 H 18 119/74 90 Laboratory Results 05/30/20 05/30/20 05/30/20 Range/Units 08:40 06:19 06:19 WBC (4.8-10.8) K/uL RBC (4.2-5.4) M/uL Hgb (12.0-16.0) g/dL Hct (37-47) % MCV (80-100) fL MCH (25-34) pg MCHC (32-36) g/dL RDW Std Deviation (36.4-46.3) fL RDW Coeff of Veronica (11.5-14.5) % Plt Count (130-400) K/uL MPV (7.4-10.4) fL Immature Gran % (Auto) % Neut % (Auto) % Lymph % (Auto) % [place] % (Auto) % Eos % (Auto) % Baso % (Auto) % Neut # (Auto) (1.4-6.5) K/uL Lymph # (Auto) (1.2-3.4) K/uL [place]leigh # (Auto) (0.11-0.59) K/uL Eos # (Auto) (0-0.5) K/uL Baso # (Auto) (0-0.2) K/uL Immature Gran # (Auto) (0.00-0.02) K/uL Sodium 144 (136-145) mmol/L Potassium 4.0 (3.5-5.1) mmol/L Chloride 114 H (98-107) mmol/L Carbon Dioxide 24 (21-32) mmol/L Anion Gap 6.0 (3-11) BUN 15 (7-18) mg/dl Creatinine 0.97 (0.6-1.2) mg/dl Est Cr Clr Drug Dosing 76.1 ml/min Est GFR ( Amer) 75.7 Est GFR (Non-Af Amer) 65.3 BUN/Creatinine Ratio 15.4 (10-20) Glucose 115 H (70-99) mg/dl POC Glucose 117 H (70-99) mg/dl Estimat Average Glucose 126 mg/dl Hemoglobin A1c 6.0 H (4.5-5.6) % Lactate (0.4-2.0) mmol/L Calcium 8.8 (8.5-10.1) mg/dl Magnesium 1.9 (1.8-2.4) mg/dl TSH 0.178 L (0.300-4.500) uIu/ml Free T4 1.10 (0.8-1.6) ng/dl Nasal Screen MRSA (PCR) (Negative) SARS-CoV-2 Ag (Rapid) (Negative) 05/30/20 05/29/20 05/29/20 Range/Units 06:19 Unknown Unknown WBC 15.98 H (4.8-10.8) K/uL RBC 4.02 L (4.2-5.4) M/uL Hgb 12.2 (12.0-16.0) g/dL Hct 36.4 L (37-47) % MCV 90.5 (80-100) fL MCH 30.3 (25-34) pg MCHC 33.5 (32-36) g/dL RDW Std Deviation 43.8 (36.4-46.3) fL RDW Coeff of Veronica 13.4 (11.5-14.5) % Plt Count 287 (130-400) K/uL MPV 11.6 H (7.4-10.4) fL Immature Gran % (Auto) 0.5 % Neut % (Auto) 78.9 % Lymph % (Auto) 12.4 % Burleigh % (Auto) 8.1 % Eos % (Auto) 0.0 % Baso % (Auto) 0.1 % Neut # (Auto) 12.61 H (1.4-6.5) K/uL Lymph # (Auto) 1.98 (1.2-3.4) K/uL Burleigh # (Auto) 1.30 H (0.11-0.59) K/uL Eos # (Auto) 0.00 (0-0.5) K/uL Baso # (Auto) 0.01 (0-0.2) K/uL Immature Gran # (Auto) 0.08 H (0.00-0.02) K/uL Sodium (136-145) mmol/L Potassium (3.5-5.1) mmol/L Chloride (98-107) mmol/L Carbon Dioxide (21-32) mmol/L Anion Gap (3-11) BUN (7-18) mg/dl Creatinine (0.6-1.2) mg/dl Est Cr Clr Drug Dosing ml/min Est GFR ( Amer) Est GFR (Non-Af Amer) BUN/Creatinine Ratio (10-20) Glucose (70-99) mg/dl POC Glucose (70-99) mg/dl Estimat Average Glucose mg/dl Hemoglobin A1c (4.5-5.6) % Lactate (0.4-2.0) mmol/L Calcium (8.5-10.1) mg/dl Magnesium (1.8-2.4) mg/dl TSH (0.300-4.500) uIu/ml Free T4 (0.8-1.6) ng/dl Nasal Screen MRSA (PCR) Negative (Negative) SARS-CoV-2 Ag (Rapid) Negative (Negative) 05/29/20 05/29/20 05/29/20 Range/Units 21:09 17:37 14:52 WBC (4.8-10.8) K/uL RBC (4.2-5.4) M/uL Hgb (12.0-16.0) g/dL Hct (37-47) % MCV (80-100) fL MCH (25-34) pg MCHC (32-36) g/dL RDW Std Deviation (36.4-46.3) fL RDW Coeff of Veronica (11.5-14.5) % Plt Count (130-400) K/uL MPV (7.4-10.4) fL Immature Gran % (Auto) % Neut % (Auto) % Lymph % (Auto) % [place] % (Auto) % Eos % (Auto) % Baso % (Auto) % Neut # (Auto) (1.4-6.5) K/uL Lymph # (Auto) (1.2-3.4) K/uL [place] # (Auto) (0.11-0.59) K/uL Eos # (Auto) (0-0.5) K/uL Baso # (Auto) (0-0.2) K/uL Immature Gran # (Auto) (0.00-0.02) K/uL Sodium (136-145) mmol/L Potassium (3.5-5.1) mmol/L Chloride (98-107) mmol/L Carbon Dioxide (21-32) mmol/L Anion Gap (3-11) BUN (7-18) mg/dl Creatinine (0.6-1.2) mg/dl Est Cr Clr Drug Dosing ml/min Est GFR ( Amer) Est GFR (Non-Af Amer) BUN/Creatinine Ratio (10-20) Glucose (70-99) mg/dl POC Glucose 162 H 153 H 231 H (70-99) mg/dl Estimat Average Glucose mg/dl Hemoglobin A1c (4.5-5.6) % Lactate (0.4-2.0) mmol/L Calcium (8.5-10.1) mg/dl Magnesium (1.8-2.4) mg/dl TSH (0.300-4.500) uIu/ml Free T4 (0.8-1.6) ng/dl Nasal Screen MRSA (PCR) (Negative) SARS-CoV-2 Ag (Rapid) (Negative) 05/29/20 Range/Units 09:51 WBC (4.8-10.8) K/uL RBC (4.2-5.4) M/uL Hgb (12.0-16.0) g/dL Hct (37-47) % MCV (80-100) fL MCH (25-34) pg MCHC (32-36) g/dL RDW Std Deviation (36.4-46.3) fL RDW Coeff of Veronica (11.5-14.5) % Plt Count (130-400) K/uL MPV (7.4-10.4) fL Immature Gran % (Auto) % Neut % (Auto) % Lymph % (Auto) % [place] % (Auto) % Eos % (Auto) % Baso % (Auto) % Neut # (Auto) (1.4-6.5) K/uL Lymph # (Auto) (1.2-3.4) K/uL [place] # (Auto) (0.11-0.59) K/uL Eos # (Auto) (0-0.5) K/uL Baso # (Auto) (0-0.2) K/uL Immature Gran # (Auto) (0.00-0.02) K/uL Sodium (136-145) mmol/L Potassium (3.5-5.1) mmol/L Chloride (98-107) mmol/L Carbon Dioxide (21-32) mmol/L Anion Gap (3-11) BUN (7-18) mg/dl Creatinine (0.6-1.2) mg/dl Est Cr Clr Drug Dosing ml/min Est GFR ( Amer) Est GFR (Non-Af Amer) BUN/Creatinine Ratio (10-20) Glucose (70-99) mg/dl POC Glucose (70-99) mg/dl Estimat Average Glucose mg/dl Hemoglobin A1c (4.5-5.6) % Lactate 1.3 (0.4-2.0) mmol/L Calcium (8.5-10.1) mg/dl Magnesium (1.8-2.4) mg/dl TSH (0.300-4.500) uIu/ml Free T4 (0.8-1.6) ng/dl Nasal Screen MRSA (PCR) (Negative) SARS-CoV-2 Ag (Rapid) (Negative)
--- NOTE | 2020-05-30 10:45 | Electrocardiogram Report ---
Test Reason : Blood Pressure : / mmHG Vent. Rate : 098 BPM Atrial Rate : 098 BPM P-R Int : 188 ms QRS Dur : 088 ms QT Int : 350 ms P-R-T Axes : 065 004 071 degrees QTc Int : 446 ms Sinus rhythm with occasional Premature ventricular complexes Nonspecific ST and T wave abnormality Abnormal ECG When compared with ECG of 29-MAY-2020 21:28, (unconfirmed) Premature ventricular complexes are now Present Confirmed by Dani Mi ([id number]) on 05/30/2020 10:44:38 AM Referred By: REFERRED SELF Confirmed By:Dani Mi
[2020-05-30 15:26] LABS: ALC (manual) 1.33 K/uL (1.2-3.4); ANC (manual) 12.13 K/uL (1.4-6.5); Basophils # (manual) 0.13 K/uL (0-0.2); Basophils % (manual) 0.8 %; Eosinophils # (manual) 0.13 K/uL (0-0.5); Eosinophils % (manual) 0.8 %; Lymphocytes # (manual) 1.33 K/uL (1.2-3.4); Lymphocytes % (manual) 8.3 %; Metamyelocytes % (manual) 2.5 %; Myelocytes # (manual) 1.07 K/uL (0-0); Myelocytes % (manual) 6.7 %; Neutrophils # (manual) 12.13 K/uL (1.4-6.5); Neutrophils % (manual) 75.9 %; RBC Morphology Unremarkable
[2020-05-30] MEDS: ENOXAPARIN INJ 40 MG/0.4 ML SYR SQ SCH (15:39)
--- NOTE | 2020-05-30 17:32 | Hospitalist Progress Note ---
Date of Service May 30, 2020 Assessment & Plan (1) Abscess, neck: Present on admission with left lower cheek swelling with erythema extended to the left sided of the neck soft Tissue neck showed 9 mm subcutaneous rim-enhancing left neck fluid collection consistent with an abscess at site of maximal swelling. Moderate associated inflammation with skin thickening consistent with cellulitis. WBC slightly increased from 14K to 15 K today Continue broad-spectrum antibiotic coverage with Unasyn and doxycycline Swelling and tenderness improve, but erythema extended to chin area Surgery on board and recommended to continue IV abx and suggested ENT eval Consult placed for ENT Continue monitor (2) Hypothyroidism (acquired): TSH 0.178 Will consider to decrease levothyroxine to 100mcg if no change was made in the last few weeks Will need to repeat TSH in 4 to 6 weeks (3) Hyperlipidemia: Continue statin (4) Prediabetes: Most recent Hba1c 6 Not on any DM med Continue novolog sliding scale (5) Hypertension: Continue Diltiazem BP stable (6) Depression: Continue Bupropion and Venlafaxine Stable DVT prophylaxis with Lovenox CODE STATUS FULL CODE Admission and Anticipated Discharge Date Admission Date: May 29, 2020 Subjective Pt was seen and examined Lying in bed with no distress Pt said that the pain and the swelling improve, but the erythema seems to spread under her chin Denies any chest pain, palpitation, dizziness, fever, chills and SOB Physical Exam Physical Exam: General- No acute distress Head- atraumatic Eyes- PERRL, EOMI, ENT- oropharynx clear Neck- +swelling bellow the area of l cheek with erythema extended under the chin, mild discomfort with palpation Lungs- clear to auscultation Heart- regular rhythm; no murmur Abdomen- normal bowel sounds, soft, nontender Extremities- no calf tenderness Neuro- alert, oriented x 3; PERRL, EOMI; no facial palsy; no dysarthria Skin- warm & dry Results & Data Results & Data ([facility]) Vital Signs (Past 12 Hours) Vital Signs Temp Pulse Resp BP Pulse Ox 05/30/20 15:22 37 C 94 H 18 131/84 95 05/30/20 08:49 92 05/30/20 07:29 36.9 C 95 H 129/75 84 L (1) Depression Active/Remission status: remission status unspecified Depression Type: major depressive disorder Major depression recurrence: recurrent Qualified Code(s): F33.9 - Major depressive disorder, recurrent, unspecified
--- NOTE | 2020-05-30 18:52 | Communication Note ---
Date of Service: May 30, 2020 Spoke to [facility] ENT Dr. Herrera about the consult. Kobe Herrera said that she is on practice call only. She said that if patient required urgent ENT consult that pt will need to be transfer to a facility with ENT. I went to reeval patient again. She said that she feels ok and afebrile. she said that she felt the swelling seems to slightly decrease and the erythema is not worst compare to this morning. I gave her the option to transfer to another facility to get eval by ENT but she does not want to transfer at this time. I advised her if she be comes febrile or the erythema or swelling worsening, will transfer her because that can lead to sepsis. She agreed to transfer if worsening. Will try to call to [facility] ENT to see if they are willing to see her tomorrow morning. MD Erick
[2020-05-30] MEDS: MIRTAZAPINE TAB 15 MG TAB PO SCH (21:23)
[2020-05-31] MEDS: AMPICILLIN/SULBACTAM SOD 3,000 MG in 0.9 % SODIUM CHLORIDE 100 ML IV SCH ×4 (02:24→20:27)
[2020-05-31] MEDS: LEVOTHYROXINE SODIUM 112 MCG TABLET PO SCH (05:18)
--- NOTE | 2020-05-31 06:22 | Surgery Progress Note ---
Date of Service May 31, 2020 Assessment & Plan (1) Abscess, neck: -continue abx. as ordered--unasyn -hospitalist to contact ENT this morning to consider I & D as prior surgical team felt abscess was best handled by this specialty -awaiting am labs to follow trend of WBC Admission and Anticipated Discharge Date Admission Date: May 29, 2020 Supervising Physician Co-Signing Physician Notes I personally saw and evaluated the patient with Khoi Glass PA-C and agree with the assessment and plan 55 yo female with neck abscess -Clinically she is improving -Await ENT consult -May need I&D Subjective Pt. notes a good night--she feels there has been no worsening of neck infection. She denies dysphagia, SOB, fevers, shakes, chills. Physical Exam Neck: trachea midline erythema noted along neck on left side extending under chin. No crepitus in soft tissue. There is a small 1 cm x 1 cm area on left side with some fluctuance Respiratory: normal respiratory effort; no respiratory distress and no labored breathing no stridor Results & Data ([facility]) Vital Signs (Past 12 Hours) Vital Signs Temp Pulse Resp BP Pulse Ox 05/30/20 23:46 37 C 98 H 16 107/66 90 PG Care Time/CCT Total # of Minutes Spent Total Time Spent with Patient: Total time spent is greater than 50% in coordination of care (as documented) at patient's floor/unit and/or counseling patient: Coding Level of Care Code 12120 Subseq Hosp Care Lvl 1 Diagnoses Abscess, neck L02.11
[2020-05-31 06:35] LABS: Basophils # (auto) 0.02 K/uL (0-0.2); Basophils % (auto) 0.2 %; Eosinophils % (auto) 0.9 %; Hematocrit (blood only) 37.8 % (37-47); Hemoglobin 12.3 g/dL (12.0-16.0); Immature Granulocytes # (auto) 0.08 K/uL (0.00-0.02); Immature Granulocytes % (auto) 0.7 %; Lymphocytes # (auto) 4.36 K/uL (1.2-3.4); Lymphocytes % (auto) 37.4 %; Mean Corpuscular Hemoglobin 30.4 pg (25-34); Mean Corpuscular Hgb Conc 32.5 g/dL (32-36); Mean Corpuscular Volume 93.6 fL (80-100); Mean Platelet Volume 11.7 fL (7.4-10.4); Monocytes % (auto) 7.7 %; Neutrophils % (auto) 53.1 %; Platelet Count 303 K/uL (130-400); RDW Coefficient of Variation 13.8 % (11.5-14.5); RDW Standard Deviation 47.2 fL (36.4-46.3); Red Blood Count 4.04 M/uL (4.2-5.4); White Blood Count 11.66 K/uL (4.8-10.8)
[2020-05-31 06:58] LABS: BUN Creatinine Ratio 17.6 (10-20); Calcium 8.2 mg/dl (8.5-10.1); Est GFR (African American) 67.2; Potassium 3.8 mmol/L (3.5-5.1)
[2020-05-31] MEDS: INSULIN ASPART 100 UNITS/ML 3 ML PEN SC SCH ×4 (08:30→21:52)
[2020-05-31] MEDS: buPROPion SR 150 MG TABCR PO SCH (08:40)
[2020-05-31] MEDS: VENLAFAXINE HCL XR 150 MG CAPXR PO SCH (08:40)
[2020-05-31] MEDS: DOXYCYCLINE HYCLATE 100 MG CAP PO SCH ×2 (08:40→20:22)
[2020-05-31] MEDS: ATORVASTATIN 20 MG TAB PO SCH (08:41)
[2020-05-31] MEDS: dilTIAZem HCL 240 MG CAPCR PO SCH (08:41)
[2020-05-31] MEDS: lamoTRIgine 100 MG TAB PO SCH (08:41)
[2020-05-31] MEDS: ENOXAPARIN INJ 40 MG/0.4 ML SYR SQ SCH (16:04)
--- NOTE | 2020-05-31 17:05 | Hospitalist Progress Note ---
Date of Service May 31, 2020 Assessment & Plan (1) Abscess, neck: Present on admission with left lower cheek swelling with erythema extended to the left sided of the neck soft Tissue neck showed 9 mm subcutaneous rim-enhancing left neck fluid collection consistent with an abscess at site of maximal swelling. Moderate associated inflammation with skin thickening consistent with cellulitis. WBC slightly increased from 14K to 15 K today Continue broad-spectrum antibiotic coverage with Unasyn and doxycycline Swelling and tenderness improve, but erythema extended to chin area Surgery on board and recommended to continue IV abx and suggested ENT eval Erythema, tenderness and swelling improve WBC trending down, Continue IV abx [facility] was consulted but no ENT coverage until 06/14 case discussed with [facility] ENT Dr. Millard that willing to see the patient outpatient since improving I gave her the option to transfer to another facility to get eval by ENT but she does not want to transfer at this time since the redness and swelling improving. I advised her if she becomes febrile or the erythema or swelling worsening, will transfer her because that can lead to sepsis. She agreed to transfer if worsening. Case discussed with surgery might do a bedside I&D if the swelling and erythema do not improve tomorrow Continue monitor closely (2) Hypothyroidism (acquired): TSH 0.178 Will consider to decrease levothyroxine to 100mcg if no change was made in the last few weeks Will need to repeat TSH in 4 to 6 weeks (3) Hyperlipidemia: Continue statin (4) Prediabetes: Most recent Hba1c 6 Not on any DM med Continue novolog sliding scale (5) Hypertension: Continue Diltiazem BP stable (6) Depression: Continue Bupropion and Venlafaxine Stable DVT prophylaxis with Lovenox CODE STATUS FULL CODE Admission and Anticipated Discharge Date Admission Date: May 29, 2020 Subjective Pt was seen and examined Sitting in bed with no distress Pt said that the redness and swelling in the left lower cheek improve The erythema that extended around the chin is asset management lead Denies any chest pain, palpitation, dizziness, fever and chills Physical Exam Physical Exam: General- No acute distress Head- atraumatic Eyes- PERRL, EOMI, ENT- oropharynx clear Neck- +L lower cheek erythema and swelling improves Lungs- clear to auscultation Heart- regular rhythm; no murmur Abdomen- normal bowel sounds, soft, nontender Extremities- no calf tenderness Neuro- alert, oriented x 3; PERRL, EOMI; no facial palsy; no dysarthria Skin- warm & dry Results & Data Results & Data ([facility]) Vital Signs (Past 12 Hours) Vital Signs Temp Pulse Resp BP Pulse Ox 05/31/20 15:28 37.1 C 87 18 134/74 95 05/31/20 07:49 37.0 C 61 16 149/83 H 94 (1) Depression Active/Remission status: remission status unspecified Depression Type: major depressive disorder Major depression recurrence: recurrent Qualified Code(s): F33.9 - Major depressive disorder, recurrent, unspecified
[2020-05-31] MEDS: MIRTAZAPINE TAB 15 MG TAB PO SCH (20:22)
[2020-06-01] MEDS: AMPICILLIN/SULBACTAM SOD 3,000 MG in 0.9 % SODIUM CHLORIDE 100 ML IV SCH ×4 (02:06→21:25)
--- NOTE | 2020-06-01 04:56 | Surgery Progress Note ---
Date of Service June 01, 2020 Assessment & Plan (1) Abscess, neck: -continue abx--unasyn -hospitalists were to contact ENT yesterday, will discuss with them later today Admission and Anticipated Discharge Date Admission Date: May 29, 2020 Supervising Physician Co-Signing Physician Notes I personally saw and evaluated the patient with Khoi Glass PA-C and agree with the assessment and plan 55 yo female with neck abscess -Clinically she is improving -ENT suggested f/u as outpatient -I think this is reasonable as she is much improved and has a subcentimeter abscess -Ok to d/c home from surgical standpoint -Would suggest PO ABX and close ENT f/u this week -Call back with any questions Subjective Pt. denies fevers, shakes, chills. No SOB or dysphagia. She notes neck swelling continues to improv.e Physical Exam Constitutional: well developed and well nourished; no acute distress Neck: pt. has small area on left side consistent with small abscess. Erythema has improved. Results & Data ([facility]) Vital Signs (Past 12 Hours) Vital Signs Temp Pulse Resp BP Pulse Ox 06/01/20 00:02 37 C 91 H 16 136/77 93 PG Care Time/CCT Total # of Minutes Spent Total Time Spent with Patient: Total time spent is greater than 50% in coordination of care (as documented) at patient's floor/unit and/or counseling patient: Coding Level of Care Code 63897 Subseq Hosp Care Lvl 1 Diagnoses Abscess, neck L02.11
[2020-06-01] MEDS: LEVOTHYROXINE SODIUM 112 MCG TABLET PO SCH (05:43)
[2020-06-01 06:14] LABS: Basophils # (auto) 0.05 K/uL (0-0.2); Basophils % (auto) 0.4 %; Eosinophils # (auto) 0.36 K/uL (0-0.5); Eosinophils % (auto) 3.2 %; Hematocrit (blood only) 40.8 % (37-47); Hemoglobin 13.4 g/dL (12.0-16.0); Immature Granulocytes # (auto) 0.03 K/uL (0.00-0.02); Immature Granulocytes % (auto) 0.3 %; Lymphocytes # (auto) 3.58 K/uL (1.2-3.4); Lymphocytes % (auto) 32.1 %; Mean Corpuscular Hemoglobin 30.4 pg (25-34); Mean Corpuscular Hgb Conc 32.8 g/dL (32-36); Mean Corpuscular Volume 92.5 fL (80-100); Mean Platelet Volume 11.2 fL (7.4-10.4); Monocytes # (auto) 1.02 K/uL (0.11-0.59); Monocytes % (auto) 9.1 %; Neutrophils # (auto) 6.12 K/uL (1.4-6.5); Neutrophils % (auto) 54.9 %; Platelet Count 317 K/uL (130-400); RDW Coefficient of Variation 13.7 % (11.5-14.5); RDW Standard Deviation 46.4 fL (36.4-46.3); Red Blood Count 4.41 M/uL (4.2-5.4); White Blood Count 11.16 K/uL (4.8-10.8)
[2020-06-01 06:44] LABS: Calcium 8.9 mg/dl (8.5-10.1); Creatinine Clr Calc Pharmacy 72.4 ml/min; Est GFR (African American) 71.2; Est GFR (Non-African American) 61.4; Potassium 3.7 mmol/L (3.5-5.1)
[2020-06-01] MEDS: INSULIN ASPART 100 UNITS/ML 3 ML PEN SC SCH ×4 (08:50→22:12)
[2020-06-01] MEDS: DOXYCYCLINE HYCLATE 100 MG CAP PO SCH ×2 (08:52→21:15)
[2020-06-01] MEDS: lamoTRIgine 100 MG TAB PO SCH (08:53)
[2020-06-01] MEDS: buPROPion SR 150 MG TABCR PO SCH (08:53)
[2020-06-01] MEDS: ATORVASTATIN 20 MG TAB PO SCH (08:53)
[2020-06-01] MEDS: VENLAFAXINE HCL XR 150 MG CAPXR PO SCH (08:54)
[2020-06-01] MEDS: dilTIAZem HCL 240 MG CAPCR PO SCH (08:54)
[2020-06-01] MEDS: ENOXAPARIN INJ 40 MG/0.4 ML SYR SQ SCH (17:18)
--- NOTE | 2020-06-01 19:21 | Hospitalist Progress Note ---
Date of Service June 01, 2020 Assessment & Plan (1) Abscess, neck: Present on admission with left lower cheek swelling with erythema extended to the left sided of the neck soft Tissue neck showed 9 mm subcutaneous rim-enhancing left neck fluid collection consistent with an abscess at site of maximal swelling. Moderate associated inflammation with skin thickening consistent with cellulitis. WBC slightly increased from 14K to 15 K today Continue broad-spectrum antibiotic coverage with Unasyn and doxycycline Swelling and tenderness improve, but erythema extended to chin area Surgery on board and recommended to continue IV abx and suggested ENT eval Erythema, tenderness and swelling improve WBC trending down, Continue IV abx [facility] was consulted but no ENT coverage until 06/14 case discussed with [facility] ENT Dr. Millard that willing to see the patient outpatient since improving I gave her the option to transfer to another facility to get eval by ENT but she does not want to transfer at this time since the redness and swelling improving. I advised her if she becomes febrile or the erythema or swelling worsening, will transfer her because that can lead to sepsis. She agreed to transfer if worsening. Case discussed with surgery might do a bedside I&D if the swelling and erythema do not improve Erythema and swelling improve significantly Will transition to PO abx and follow up with ENT outpatient this week to eval the abscess Ok from surgical standpoint to discharge home Pt would like to D/C in am (2) Hypothyroidism (acquired): TSH 0.178 Will consider to decrease levothyroxine to 100mcg if no change was made in the last few weeks Will need to repeat TSH in 4 to 6 weeks (3) Hyperlipidemia: Continue statin (4) Prediabetes: Most recent Hba1c 6 Not on any DM med Continue novolog sliding scale (5) Hypertension: Continue Diltiazem BP stable (6) Depression: Continue Bupropion and Venlafaxine Stable DVT prophylaxis with Lovenox CODE STATUS FULL CODE Admission and Anticipated Discharge Date Admission Date: May 29, 2020 Subjective Pt was seen and examined. Lying in bed with no distress. Pt said that she feels much better The erythema and swelling in left lower mandible and neck area improve significantly She denies any fever, chills, dysphagia, chest pain and SOB Physical Exam Physical Exam: General- No acute distress Head- atraumatic Eyes- PERRL, EOMI, ENT- oropharynx clear Neck- +L lower cheek erythema and swelling improve significantly Lungs- clear to auscultation Heart- regular rhythm; no murmur Abdomen- normal bowel sounds, soft, nontender Extremities- no calf tenderness Neuro- alert, oriented x 3; PERRL, EOMI; no facial palsy; no dysarthria Skin- warm & dry Results & Data Results & Data ([facility]) Vital Signs (Past 12 Hours) Vital Signs Temp Pulse Resp BP BP Pulse Ox 06/01/20 15:20 37.4 C 91 H 20 149/74 H 91 06/01/20 07:51 36.9 C 87 16 131/76 92 (1) Depression Active/Remission status: remission status unspecified Depression Type: major depressive disorder Major depression recurrence: recurrent Qualified Code(s): F33.9 - Major depressive disorder, recurrent, unspecified
[2020-06-01] MEDS: MIRTAZAPINE TAB 15 MG TAB PO SCH (21:15)
[2020-06-02] MEDS: AMPICILLIN/SULBACTAM SOD 3,000 MG in 0.9 % SODIUM CHLORIDE 100 ML IV SCH ×2 (02:32→09:15)
[2020-06-02] MEDS: LEVOTHYROXINE SODIUM 112 MCG TABLET PO SCH (05:43)
[2020-06-02] MEDS: INSULIN ASPART 100 UNITS/ML 3 ML PEN SC SCH ×2 (08:32→12:33)
[2020-06-02 08:35] LABS: Hematocrit (blood only) 40.7 % (37-47); Hemoglobin 13.5 g/dL (12.0-16.0); Mean Corpuscular Hemoglobin 30.3 pg (25-34); Mean Corpuscular Hgb Conc 33.2 g/dL (32-36); Mean Corpuscular Volume 91.3 fL (80-100); Mean Platelet Volume 11.5 fL (7.4-10.4); Platelet Count 335 K/uL (130-400); RDW Coefficient of Variation 13.7 % (11.5-14.5); RDW Standard Deviation 44.8 fL (36.4-46.3); Red Blood Count 4.46 M/uL (4.2-5.4); White Blood Count 8.76 K/uL (4.8-10.8)
[2020-06-02] MEDS: ATORVASTATIN 20 MG TAB PO SCH (09:14)
[2020-06-02] MEDS: VENLAFAXINE HCL XR 150 MG CAPXR PO SCH (09:15)
[2020-06-02] MEDS: dilTIAZem HCL 240 MG CAPCR PO SCH (09:15)
[2020-06-02] MEDS: buPROPion SR 150 MG TABCR PO SCH (09:15)
[2020-06-02] MEDS: DOXYCYCLINE HYCLATE 100 MG CAP PO SCH (09:15)
[2020-06-02] MEDS: lamoTRIgine 100 MG TAB PO SCH (09:15)
[2020-06-02] MEDS ORDERED: AMPICILLIN/SULBACTAM CONSULT ACTIVE PRN (09:58)
--- NOTE | 2020-06-02 12:45 | Discharge Summary ---
Date of Service June 02, 2020 Admission HPI Per Admitting Provider This is a 55 y/o female with a PMH of hypothyroidism, dyslipidemia, prediabetes, and depression who presented to the ED this morning with worsening symptoms of a neck infection. Pt reports that she noticed swelling, redness, and tenderness in her left neck three days ago. She was using warm compresses which seemed to help somewhat. Not really painful but area was tender to touch. Yesterday afternoon, symptoms acutely worsening with increased swelling and tenderness with the onset of spontaneous purulent drainage. She kept wiping the area and cleaning with soap and water but didn't feel like she needed to keep it covered. Drainage seemed to stop overnight. None at present. She didn't sleep well last night due to her symptoms although she denies that significant pain kept her awake. She has felt hot at times but denies chills. No documented fever at home but was noted to have a fever in the ED. Fatigue related to not sleeping last night but otherwise no malaise. She denies dysphagia, odynophagia, sensation of throat closing, chest tightness, wheezing, shortness of breath or chest pain. She denies dental pain, swelling or bleeding. No similar symptoms prior. 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 No known contact with COVID but her spouse works at [employer], which is currently having an outbreak. Spouse is asymptomatic. Admission Exam Per Admitting Provider Constitutional: WD/WN, vitals as above no acute distress Eyes: + anicteric sclerae ENMT: multiple fillings noted, no significant gingival swelling, purulent drainage, bleeding or tenderness noted. Neck: moderately swollen submandibular LN. Tender indurated area left neck with overlying area of erythema, small amount of crusted drainage but not actively draining at present. Tenderness extends from just right of midline under jaw to left jawline to lateral left neck but does not extend to left ear or left supraclavicular area Respiratory: no respiratory distress and no labored breathing Auscultation: lungs clear to auscultation bilaterally; no rales, no rhonchi and no wheezes Cardiovascular: regular rate and regular rhythm Heart Sounds: no gallop, no murmur and no cardiac rub Vessels: dorsalis pedis pulses present Extremities: no pedal edema Gastrointestinal: normal bowel sounds; abdomen not distended Percussion/Palpation: abdomen soft; abdomen nontender Musculoskeletal: normocephalic, head atraumatic and neck supple Extremities: no cyanosis and no clubbing Skin: + induration and + erythema See neck exam Neurologic: moves all extremities; no focal motor deficits Psychiatric: A+Ox3, euthymic affect Principal Diagnosis Abscess, neck: Hypothyroidism (acquired): Hyperlipidemia: Prediabetes: Hypertension: Discharge Exam General- No acute distress Head- atraumatic Eyes- PERRL, EOMI, ENT- oropharynx clear Neck- +L lower cheek erythema and swelling improve significantly Lungs- clear to auscultation Heart- regular rhythm; no murmur Abdomen- normal bowel sounds, soft, nontender Extremities- no calf tenderness Neuro- alert, oriented x 3; PERRL, EOMI; no facial palsy; no dysarthria Skin- warm & dry Discharge Data Allergies Allergy/AdvReac Type Severity Reaction Status Date / Time codeine AdvReac Unknown Nausea/Vomi Verified 05/29/20 07:13 ting Iodinated Contrast Media AdvReac Unknown Tachycardia Verified 05/29/20 07:13 morphine AdvReac Unknown Nausea/Vomi Verified 05/29/20 07:13 ting Consultations 05/29/20 10:30 ED Decision to Admit Stat 05/29/20 14:27 Consult General Surgery Routine 05/30/20 08:46 Consult Otolaryngology (Head and Neck) Routine Ordered Studies 05/29/20 07:09 CT soft tissue neck w con Stat CT OF THE NECK WITH IV CONTRAST CLINICAL HISTORY: Left neck abscess versus cellulitis. COMPARISON STUDY: No previous studies for comparison. TECHNIQUE: Following IV administration of 94 mL of Optiray-320, helical axial images of the neck were obtained. Sagittal and coronal reconstructions were viewed. Automated exposure control was utilized for the study. A dose lowering technique was utilized adhering to the principles of ALARA. CT DOSE: 442.83 mGycm FINDINGS: Visualized portions of the intracranial contents are unremarkable. Orbits are unremarkable. The sinuses are clear. A few opacified right mastoid air cells are noted. Major vasculature of the neck is patent. Parotid and submandibular glands are normal. No periapical abscess is identified. A marker was placed on the skin at site of abnormality. There is a corresponding 9 mm subcutaneous rim-enhancing fluid collection on image 129 of 238 consistent with a small abscess. There is moderate associated inflammation with thickening of the platysma. There is no soft tissue gas. Airway is patent. Lung apices are clear. There is no cervical spine fracture. No cervical lymphadenopathy is present. Epiglottis is normal. No mucosal lesion is identified although these may be occult by CT. IMPRESSION: 9 mm subcutaneous rim-enhancing left neck fluid collection consistent with an abscess at site of maximal swelling. Moderate associated inflammation with skin thickening consistent with cellulitis. No soft tissue gas. ACT 112: Negative or not required by law. Electronically signed by: Samuel Schumacher M.D. 05/29/2020 9:21 AM Dictated: 05/29/20913Transcribed: 05/29/20913 Hospital Course (1) Abscess, neck: Present on admission with left lower cheek swelling with erythema extended to the left sided of the neck soft Tissue neck showed 9 mm subcutaneous rim-enhancing left neck fluid collection consistent with an abscess at site of maximal swelling. Moderate associated inflammation with skin thickening consistent with cellulitis. WBC slightly increased from 14K to 15 K today Continue broad-spectrum antibiotic coverage with Unasyn and doxycycline Swelling and tenderness improve, but erythema extended to chin area Surgery on board and recommended to continue IV abx and suggested ENT eval Erythema, tenderness and swelling improve WBC trending down, Continue IV abx [facility] was consulted but no ENT coverage until 06/14 case discussed with [facility] ENT Dr. Millard that willing to see the patient outpatient since improving I gave her the option to transfer to another facility to get eval by ENT but she does not want to transfer at this time since the redness and swelling improving. I advised her if she becomes febrile or the erythema or swelling worsening, will transfer her because that can lead to sepsis. She agreed to transfer if worsening. Case discussed with surgery might do a bedside I&D if the swelling and erythema do not improve Erythema and swelling improve significantly Will transition to PO abx and follow up with ENT outpatient this week to eval the abscess Ok from surgical standpoint to discharge home Will discharge on PO augmentin and Doxycycline Follow up with ENT on 06/[address] Herrera (2) Hypothyroidism (acquired): TSH 0.178 Will consider to decrease levothyroxine to 100mcg if no change was made in the last few weeks Will need to repeat TSH in 4 to 6 weeks (3) Hyperlipidemia: Continue statin (4) Prediabetes: Most recent Hba1c 6.0 on 05/2020 Not on any DM med Continue novolog sliding scale while inpatient Advised pt to follow up a healthy diabetes diet and limited concentrated sweet intake Check Hba1c in 4 to 6 weeks (5) Hypertension: Continue Diltiazem BP stable (6) Depression: Continue Bupropion and Venlafaxine Stable DVT prophylaxis with Lovenox CODE STATUS FULL CODE Disposition Follow up with Dr. Hernandez Total Time Total Time Spent Total Time Spent (In Minutes): 35 minutes Total Time Includes: Examination of the Patient, Discharge Planning, Medication Reconciliation, Communication With Other Providers and Other Discharge Plan Discharge Items Patient Disposition: Home - Self-Care Reason For Visit: LEFT NECK ABSCESS Discharge Diagnosis: Abscess, neck: Hypothyroidism (acquired): Hyperlipidemia: Prediabetes: Hypertension: Activity: Resume your previous activity Non-emergency contact: Primary Care Provider Call non-emergency contact if: you have any medication questions and your temperature is above 101 Follow-up/Referrals: Davis Hernandez DO [Primary Care Provider] - (Date & Time 06/06/2020 3:00 PM Provider Davis Hernandez DO Department General Internal Medicine [facility] ) Lula Herrera MD [Surgeon] - (Date & Time 06/09/2020 8:00 AM Provider Lula Herrera MD Department Otolaryngology [facility] ) Diet: Heart Healthy Addtl Attending Provider Instructions: Follow up with your primary care provider Dr. Hernandez on 06/06/2020 at3:00 PM Follow up with ENT dr. Herrera on 06/09/2020 at 8:00 AM (Otolaryngology [facility]) Complete the course of the antibiotic with doxycycline and Augmentin Seek medical attention if you develop any fever Check TSH in 4 to 6 weeks to monitor your thyroid function Check Hba1c in 6 months to evaluate for diabetes Follow a health diet and limited concentrated sweet intake Pending Studies at Discharge: No Stand-Alone Forms: My What the Trend, Opioid Pain Management, Smoking Cessation Medications and DC Order Prescriptions: New doxycycline hyclate 100 mg Capsule 100 mg PO BID 6 Days Qty: 12 RF: 0 amoxicillin-pot clavulanate [Augmentin] 875-125 mg Tablet 1 tab PO BIDM 6 Days Qty: 12 RF: 0 levothyroxine 100 mcg capsule 100 mcg PO DAILY Qty: 30 RF: 0 Continued bupropion HCl 150 mg tablet sustained-release 12 hr 150 mg PO QAM RF: 0 lamotrigine 200 mg tablet 300 mg PO QAM RF: 0 atorvastatin 20 mg tablet 20 mg PO QAM RF: 0 diltiazem HCl 240 mg capsule,extended release 24hr 240 mg PO QAM RF: 0 venlafaxine 150 mg capsule,extended release 24hr 300 mg PO QAM RF: 0 hydroxyzine HCl 10 mg tablet 10 - 20 mg PO TID PRN (Reason: Anxiety) RF: 0 mirtazapine 7.5 mg tablet 15 mg PO HS RF: 0 ibuprofen 200 mg Tablet 200 mg PO Q6H PRN (Reason: Pain) RF: 0 Discontinued levothyroxine 112 mcg tablet 112 mcg PO QAM RF: 0 Discharge Orders: Discharge Order (Routine); Ordered 06/02/20 Ordered By: Bonifacio Bridges/Other Patient Handouts: Prediabetes, Diabetes: Meal Planning, A1C Admission Data Admit Date/Time: 06/02/20 07:46 Attending Provider: Bonifacio Suarez Admit Provider: Tj An Primary Care Provider: Davis Hernandez Other Providers: González Walden ; Tj An ; Lula Herrera Other Interventions: Discharge Summary Assessment (RN) Last Done: 06/02/20 11:09
[2020-06-02] MEDS ORDERED: AMOXICILLIN/CLAVULANATE 875 MG TAB PO SCH (17:00)
== END 2020-06-02 13:45 | disposition home or self-care (01) | DRG 603 ==
LOC: 3N 06:32 → ED 06:32 → SUATTDRO 11:12 → 3N 14:13